=== PATIENT | female | born 1975 | race Hispanic/Latino ===

== ENCOUNTER 2019-03-16 09:03 | Outpatient (CLI) | payer BC ==
--- NOTE | 2019-03-16 10:07 | MMO ---
Bilateral MAMMO Bilat Screen [facility]. CLINICAL HISTORY: Patient is 43 years old and is seen for screening. The patient has no family history of breast cancer. The patient has no personal history of cancer. The patient has a history of bilateral Implants. VIEWS: The views performed were: bilateral craniocaudal with tomosynthesis; bilateral mediolateral oblique with tomosynthesis; and bilateral Implant displaced. FILMS COMPARED: The present examination has been compared to prior imaging studies performed at [facility] on 12/04/2011, and at [facility] [place] on 05/23/2016. MAMMOGRAM FINDINGS: The breasts are heterogeneously dense, which could obscure a lesion on mammography. Normal implants are present.. There are no suspicious masses, suspicious calcifications, or new areas of architectural distortion. IMPRESSION: THERE IS NO MAMMOGRAPHIC EVIDENCE OF MALIGNANCY. A ROUTINE FOLLOW-UP MAMMOGRAM IN 1 YEAR IS RECOMMENDED. THE RESULTS OF THIS EXAM WERE SENT TO THE PATIENT. ACR BI-RADS Category 2 - Benign finding MAMMOGRAPHY NOTE: 1. A negative mammogram report should not delay a biopsy if a dominant of clinically suspicious mass is present. 2. Approximately 10% to 15% of breast cancers are not detected by mammography. 3. Adenosis and dense breasts may obscure an underlying neoplasm.
== END 2019-03-16 09:04 | disposition home or self-care (01) ==
LOC: BICMAMMO 09:03
PROVIDERS: ATTEND Family Medicine
DX: Z12.31 Encounter for screening mammogram for malignant neoplasm of breast (principal); Z98.82 Breast implant status
CPT/HCPCS: 77063; 77067

== ENCOUNTER 2019-09-16 12:38 | Outpatient (CLI) | payer BC ==
--- NOTE | 2019-09-16 15:04 | MRI ---
MR the lumbar spine without contrast: 09/16/2019 History: Lumbar radiculopathy, occasional pain radiating down both legs COMPARISON: None. TECHNIQUE: Multiplanar multisequence MR images were obtained of lumbar spine without IV contrast FINDINGS: On the basis of 5 lumbar type vertebral bodies, conus medullaris terminates at theL2 level. Sagittal STIR imaging demonstrates no focal area of osseous marrow edema. T12-L1:No significant central canal or neural foraminal stenosis. Mild disc space narrowing. L1-2:Intervertebral disc height and signal intensity appears grossly unremarkable. No significant kaylee tral canal or neural foraminal stenosis. L2-3:Intervertebral disc height and signal intensity appears within normal limits. No significant kaylee tral canal or neural foraminal stenosis. L3-4:There is disc desiccation. Mild bilateral facet hypertrophy. No significant central canal or ariana ral foraminal stenosis. L4-5:Mild bilateral facet hypertrophy with no significant central canal or neural foraminal stenosis. L5-S1:No central canal or neural foraminal stenosis. Image retroperitoneal structures demonstrateno acute findings. IMPRESSION: No significant central canal or neural foraminal stenosis noted within the lumbar spine.
--- NOTE | 2019-09-16 15:39 | MRI ---
MRI THORACIC SPINE NONCONTRAST: 09/16/19 HISTORY: 43-year-old female with ICD-10: M54.14, thoracic radiculopathy. COMPARISON: None available. FINDINGS: Vertebral body heights are maintained. Normal marrow signal. No high grade degenerative disc disease at any level. No neural foraminal stenosis, central spinal canal stenosis, focal significant disc he rniation, or cord impingement, at any level. Thoracic spinal cord is normal in size and signal. No sy rinx. Unremarkable perivertebral spaces. IMPRESSION: Normal. POS: [facility]
== END 2019-09-16 12:39 | disposition home or self-care (01) ==
LOC: BICMRI 12:38
PROVIDERS: ATTEND Family Medicine
DX: M54.14 Radiculopathy, thoracic region (principal); M54.16 Radiculopathy, lumbar region
CPT/HCPCS: 72146; 72148

== ENCOUNTER 2020-12-20 08:09 | Outpatient (CLI) | payer BC | END 2020-12-20 08:10 | disposition home or self-care (01) | LOC: BICMAMMO 08:09 | PROVIDERS: ATTEND Family Medicine | DX: Z12.31 Encounter for screening mammogram for malignant neoplasm of breast (principal); N64.89 Other specified disorders of breast; Z98.82 Breast implant status | CPT/HCPCS: 77063; 77067 ==

== ENCOUNTER 2020-12-26 12:36 | Outpatient (CLI) | payer BC | END 2020-12-26 12:37 | disposition home or self-care (01) | LOC: BICMAMMO 12:36 | PROVIDERS: ATTEND Family Medicine | DX: R92.2 Inconclusive mammogram (principal) | CPT/HCPCS: G0279 ==

== ENCOUNTER 2023-12-13 07:42 | Outpatient (CLI) | payer BC | END 2023-12-13 07:43 | disposition home or self-care (01) | LOC: BICMAMMO 07:42 | PROVIDERS: ATTEND Family Medicine | DX: Z12.31 Encounter for screening mammogram for malignant neoplasm of breast (principal); Z98.82 Breast implant status | CPT/HCPCS: 77063; 77067 ==